=== PATIENT | female | born 1965 | race Caucasian/White ===

== ENCOUNTER 2024-03-13 00:17 | Emergency (ER) | payer OTHER ==
[~2024-03-13] VITALS: Ht 160 cm; Wt 77.3 kg
[2024-03-13 00:27] VITALS: TEMP 98.1
[2024-03-13] MEDS ORDERED: KETOROLAC TROMETHAMINE 30 MG/ML VIAL IVP ONE (01:00)
[2024-03-13 01:02] LABS: BASOPHILS % (AUTO) 0.8 % (0.0-2.0); EOSINOPHILS % (AUTO) 2.1 % (1.0-6.0); HEMATOCRIT 44.4 % (36-46); HEMOGLOBIN 15.2 g/dL (12.0-16.0); LYMPHOCYTES # (AUTO) 3.6 K/uL (1.0-4.8); LYMPHOCYTES % (AUTO) 39.6 % (22.0-44.0); MEAN CORPUSCULAR HEMOGLOBIN 31.2 pg (26.0-34.0); MEAN CORPUSCULAR HGB CONC 34.3 G/dL (31.0-37.0); MEAN CORPUSCULAR VOLUME 91 fL (80-100); MONOCYTES # (AUTO) 0.5 K/uL (0.1-1.0); MONOCYTES % (AUTO) 5.3 % (2.0-9.0); NEUTROPHILS # (AUTO) 4.8 K/uL (1.8-7.7); NEUTROPHILS % (AUTO) 52.2 % (40.0-70.0); PLATELET COUNT (AUTO) 341 K/uL (150-450); RED BLOOD CELL COUNT(AUTO) 4.88 MIL/uL (4.00-5.20); RED CELL DISTRIBUTION WIDTH 12.9 % (11.5-14.5); WHITE BLOOD COUNT (AUTO) 9.2 K/uL (4.5-11.0)
[2024-03-13] MEDS: KETOROLAC TROMETHAMINE 15 MG/ML VIAL IVP ONE (01:15)
[2024-03-13] MEDS: MORPHINE SULFATE 2 MG/ML SYRINGE IVP ONE (01:15)
[2024-03-13 01:16] LABS: ANION GAP 5 mmol/L (8-16); CALCIUM, TOTAL 8.6 mg/dL (8.8-10.5); CARBON DIOXIDE 29 mmol/L (22-29); CHLORIDE 99 mmol/L (98-107); CREATININE 0.72 mg/dL (0.60-1.30); GLOMERULAR FILTR. RATE CALC > 60 mL/min (>60); GLUCOSE,RANDOM 359 mg/dL (70-110); POTASSIUM 3.8 mmol/L (3.5-5.1); SODIUM SERUM 133 mmol/L (136-145); UREA NITROGEN, BLOOD 10 mg/dL (7-18)
[2024-03-13] MEDS: LIDOCAINE 5% TRANSDERMAL PATCH TD ONE (01:17)
[2024-03-13] MEDS: SODIUM CHLORIDE 0.9% 1,000 ML IV ONE (01:18)
[2024-03-13 01:26] LABS: TROPONIN I-HIGH SENSITIVITY 4 ng/L (<51)
[2024-03-13] MEDS ORDERED: LIDO700A15 TP (01:34)
[2024-03-13] MEDS ORDERED: ACET-3385 PO (01:34)
[2024-03-13] MEDS ORDERED: IBUP-1492 PO (01:34)
[2024-03-13 02:40] VITALS: BP 126/67; PULSE 90; RESP 16
== END 2024-03-13 02:57 | disposition home or self-care (01) ==
LOC: EMS 00:23
DX: S29.012A Strain of muscle and tendon of back wall of thorax, initial encounter (principal); E11.65 Type 2 diabetes mellitus with hyperglycemia; Z91.040 Latex allergy status; X58.XXXA Exposure to other specified factors, initial encounter; Y93.89 Activity, other specified; Y92.89 Other specified places as the place of occurrence of the external cause; Y99.8 Other external cause status
CPT/HCPCS: 99285; 96374; 96361; 71045; 96375; 80048; 82962; 83880; 84484; 85025; 36415; 93005; J1885; J2270; J7030

== ENCOUNTER 2024-10-04 10:08 | Emergency (ER) | payer OTHER ==
[~2024-10-04] VITALS: Ht 160 cm; Wt 77.3 kg
[~2024-10-04 10:08] MED LIST: ACET-3385 PO; IBUP-1492 PO; LIDO700A15 TP
[2024-10-04 10:13] VITALS: BP 126/84; PULSE 88; RESP 18; TEMP 97.7; O2SAT 99
[2024-10-04] MEDS ORDERED: INSU100I26 SQ (10:14)
[2024-10-04] MEDS ORDERED: IBUP-1492 PO (13:53)
== END 2024-10-04 14:25 | disposition home or self-care (01) ==
LOC: EMS 10:11
DX: S09.93XA Unspecified injury of face, initial encounter (principal); E11.9 Type 2 diabetes mellitus without complications; M25.511 Pain in right shoulder; M25.562 Pain in left knee; R51.9 Headache, unspecified; Z91.040 Latex allergy status; W19.XXXA Unspecified fall, initial encounter; Y93.89 Activity, other specified; Y92.89 Other specified places as the place of occurrence of the external cause; Y99.8 Other external cause status
CPT/HCPCS: 29505; 70486; 99284; 73030-TC; 73562-TC; Z7502